=== PATIENT | female | born 1995 ===

== ENCOUNTER → 2018-12-06 | Outpatient (CLI) | payer OTHER | END | disposition home or self-care (01) | LOC: PRENATAL 11:00 | DX: O26.892 Other specified pregnancy related conditions, second trimester (principal); Z36 Encounter for antenatal screening of mother ==

== ENCOUNTER → 2019-04-20 | Outpatient (CLI) | payer OTHER | END | disposition home or self-care (01) | LOC: PRENATAL 11:39 | DX: O26.843 Uterine size-date discrepancy, third trimester (principal); O36.8131 Decreased fetal movements, third trimester, fetus 1; O36.5931 Maternal care for other known or suspected poor fetal growth, third trimester, fetus 1 ==

== ENCOUNTER → 2019-04-27 | Outpatient (CLI) | payer OTHER ==
[~2019-04-27] MED LIST: PRENATAL TABLE1 EAC1 PO
== END | disposition home or self-care (01) ==
LOC: PRENATAL 04-25 11:00
DX: O36.63X1 Maternal care for excessive fetal growth, third trimester, fetus 1 (principal); O36.8131 Decreased fetal movements, third trimester, fetus 1

== ENCOUNTER 2019-05-02 21:47 | Inpatient (IN) | payer OTHER ==
[~2019-05-02] VITALS: Ht 149.9 cm; Wt 68.0 kg
[2019-05-02] MEDS ORDERED: PRENATAL TABLE1 EAC1 PO (22:15)
== END 2019-05-05 15:06 | disposition home or self-care (01) | DRG 807 ==
LOC: OB/GYN 21:47 → LDR 21:47 → OB/GYN 05-03 15:27
PROVIDERS: ADMIT Obstetrics & Gynecology
PROC: 10E0XZZ Delivery of Products of Conception, External Approach (ICD-10-PCS; principal; 2019-05-02)
PROC: 10907ZC Drainage of Amniotic Fluid, Therapeutic from Products of Conception, Via Natural or Artificial Opening (ICD-10-PCS; 2019-05-02)
PROC: 3E033VJ Introduction of Other Hormone into Peripheral Vein, Percutaneous Approach (ICD-10-PCS; 2019-05-02)
PROC: 4A1HXCZ Monitoring of Products of Conception, Cardiac Rate, External Approach (ICD-10-PCS; 2019-05-02)
DX: O80 Encounter for full-term uncomplicated delivery (principal); Z37.0 Single live birth; Z3A.38 38 weeks gestation of pregnancy